=== PATIENT | female | born 1940 | race Caucasian/White ===

== ENCOUNTER 2019-06-11 23:09 | Emergency (ER) | payer MEDICARE, OTHER ==
[~2019-06-11] VITALS: Ht 162.6 cm; Wt 68.0 kg
--- NOTE | 2019-06-11 23:33 | NUR ---
PT C/O R ANKLE PAIN AND SWELLING. TWISTED ANKLE ON SAT WHILE IN [facility]. WAS SEEN BY [facility] ON SUNDAY AND NO FRACTURE NOTED. PT CONTINUES WITH SWELLING AND SEVERE PAIN WITH AMBULATION. REDNESS NOTED FROM ANKLE TO MID RUBIN. PT DENIES CP OR SOB. XRAY AT BEDSIDE. FAMILY AT BEDSIDE AND AWARE OF POC.
[2019-06-11 23:49] LABS: BASOPHILS # (AUTO) 0.07 x10^3/uL (0-0.1); BASOPHILS % (AUTO) 1 % (0-1); EOSINOPHILS # (AUTO) 0.15 x10^3/uL (0-0.4); EOSINOPHILS % (AUTO) 3 % (1-7); LYMPHOCYTES # (AUTO) 1.38 x10^3/uL (1-3.4); LYMPHOCYTES % (AUTO) 23 % (22-44); MD NO; MEAN CORPUSCULAR HEMOGLOBIN 29.8 pg (27.0-34.8); MEAN CORPUSCULAR HGB CONC 32.7 g/dL (32.4-35.8); MEAN CORPUSCULAR VOLUME 91.3 fL (80-100); MEAN PLATELET VOLUME 7.2 fL (7.4-10.4); MONOCYTES # (AUTO) 0.63 x10^3/uL (0.2-0.8); MONOCYTES % (AUTO) 10 % (2-9); NEUTROPHILS # (AUTO) 3.84 x10^3/uL (1.8-6.8); NEUTROPHILS % (AUTO) 63 % (42-75); PLATELET COUNT 327 x10^3/uL (130-400); RED BLOOD COUNT 4.69 x10^6/uL (3.82-5.3); RED CELL DISTRIBUTION WIDTH 15.5 % (9.6-15.2)
[2019-06-11 23:58] LABS: ANION GAP 5 mmol/L (5-15); CALCIUM 9.2 mg/dL (8.5-10.1); CHLORIDE 111 mmol/L (98-107); CREATININE 1.04 mg/dL (0.55-1.02)
--- NOTE | 2019-06-12 00:13 | NUR ---
PT RESTING WITH NO NEEDS EXPRESSED. AWAITING US--CALL PLACED TO [facility] WHO STATES HE WILL COME OVER RIGHT NOW. NO FURTHER NEEDS EXPRESSED. CALL LIGHT IN REACH. FAMILY REMAINS AT BEDSIDE.
--- NOTE | 2019-06-12 00:39 | NUR ---
ASSISTED PT TO BR VIA W/C. WARM BLANKET GIVEN. NO FURTHER NEEDS EXPRESSED. CALL LIGHT IN REACH. VSS.
[2019-06-12 01:58] VITALS: BP 124/52
== END 2019-06-12 02:00 | disposition home or self-care (01) ==
LOC: ED 23:30
DX: S93.401A Sprain of unspecified ligament of right ankle, initial encounter (principal); L03.115 Cellulitis of right lower limb; M79.661 Pain in right lower leg; Z86.73 Personal history of transient ischemic attack (TIA), and cerebral infarction without residual deficits; I10 Essential (primary) hypertension; E11.9 Type 2 diabetes mellitus without complications; X50.1XXA Overexertion from prolonged static or awkward postures, initial encounter; Y93.89 Activity, other specified; Y92.009 Unspecified place in unspecified non-institutional (private) residence as the place of occurrence of the external cause; Y99.8 Other external cause status
CPT/HCPCS: 36415; 80048; 85025; 99284

== ENCOUNTER 2019-08-01 14:49 | Observation (INO) | payer MEDICARE, OTHER ==
[~2019-08-01] VITALS: Ht 160 cm; Wt 70.8 kg
[2019-08-01] MEDS ORDERED: AMLO10TA8 PO (15:14)
[2019-08-01] MEDS ORDERED: LOSA1TAB22 PO (15:14)
[2019-08-01] MEDS ORDERED: METF500T17 PO (15:14)
[2019-08-01] MEDS ORDERED: LATA2.5D2 EACHEYE (15:14)
--- NOTE | 2019-08-01 15:19 | NUR ---
PT TO ED WITH FAMILY AFTER FEELING DIZZY "LIKE I DIDN'T HAVE GOOD BALANCE" WITH ASSOCIATED NAUSEA. PT REPORTS IT STARTED WHILE IN A HOT SHOWER. PT'S FAMILY STATES IT CONTINUED FOR APPROX 1.5 HOURS. PT STATES ALL S/S HAVE RESOLVED AT THIS TIME. PT CONNECTED TO ALL MONITORS. VSS ON RA. NO NEEDS EXPRESSED. AT THIS TIME. AWAITING EDMD ASSESSMENT.
--- NOTE | 2019-08-01 16:13 | NUR ---
RECEIVED REPORT FROM JIAN GRANADOS. ASSUMING CARE AT THIS TIME.
[2019-08-01] MEDS ORDERED: SODIUM CHLORIDE FLUSH 10ML SYR IVF ONE (16:30)
[2019-08-01] MEDS ORDERED: SODIUM CHLORIDE 0.9% 1,000ML IVBOLUS ONE (16:30)
--- NOTE | 2019-08-01 16:49 | NUR ---
IV START. LABS AND UA COLLECTED AND SENT TO LAB. IVF RUNNING.
[2019-08-01 16:59] LABS: BASOPHILS # (AUTO) 0.02 x10^3/uL (0-0.1); BASOPHILS % (AUTO) 0 % (0-1); EOSINOPHILS # (AUTO) 0.11 x10^3/uL (0-0.4); EOSINOPHILS % (AUTO) 1 % (1-7); LYMPHOCYTES # (AUTO) 0.73 x10^3/uL (1-3.4); LYMPHOCYTES % (AUTO) 8 % (22-44); MD NO; MEAN CORPUSCULAR HEMOGLOBIN 29.6 pg (27.0-34.8); MEAN CORPUSCULAR HGB CONC 32.6 g/dL (32.4-35.8); MEAN CORPUSCULAR VOLUME 90.7 fL (80-100); MEAN PLATELET VOLUME 7.1 fL (7.4-10.4); MONOCYTES % (AUTO) 2 % (2-9); NEUTROPHILS # (AUTO) 7.79 x10^3/uL (1.8-6.8); NEUTROPHILS % (AUTO) 88 % (42-75); PLATELET COUNT 310 x10^3/uL (130-400); RED BLOOD COUNT 4.85 x10^6/uL (3.82-5.3); RED CELL DISTRIBUTION WIDTH 14.6 % (9.6-15.2)
[2019-08-01 17:05] LABS: ALANINE AMINOTRANSFERASE 37 U/L (12-78); ALBUMIN 3.9 g/dL (3.4-5.0); ANION GAP 6 mmol/L (5-15); CALCIUM 9.5 mg/dL (8.5-10.1); CHLORIDE 106 mmol/L (98-107)
[2019-08-01 17:08] LABS: MICROSCOPIC AUTO
[2019-08-01 17:09] LABS: ALKALINE PHOSPHATASE 73 U/L (45-117); BILIRUBIN,TOTAL 0.4 mg/dL (0.2-1.0); TOTAL PROTEIN 8.3 g/dL (6.4-8.2); TROPONIN I < 0.015 ng/mL (0.000-0.045)
[2019-08-01 17:11] LABS: CULTURE INDICATED? YES
--- NOTE | 2019-08-01 17:21 | NUR ---
PT RESTING COMFORTABLY ON GURNEY. MIKHAIL. FAMILY AT BEDSIDE.
--- NOTE | 2019-08-01 17:32 | NUR ---
ALL RESULTS ARE BACK AT THIS TIME. CHART UP FOR RECHECK.
--- NOTE | 2019-08-01 18:17 | NUR ---
BREAK RN: AMBULATED PT AROUND ROOM. PT WAS NOT STABLE ON HER FEET. PT ASSISTED BACK TO BED. DR ROMERO AWARE. FAMILY AT BEDSIDE. PT WENT TO CT.
[2019-08-01] MEDS ORDERED: MECLIZINE CHEWABLE 25 MG TAB PO ONE (18:30)
[2019-08-01] MEDS ORDERED: MECLIZINE CHEWABLE 25 MG TAB ONE (18:36)
--- NOTE | 2019-08-01 18:39 | NUR ---
PT BACK FROM CT. MEDS ADMIN PER OCT. PT RESTING ON RSANDIA. FAMILY AT BEDSIDE.
--- NOTE | 2019-08-01 18:40 | NUR ---
ALL RESULTS ARE BACK AT THIS TIME. CHART UP FOR RECHECK.
--- NOTE | 2019-08-01 19:10 | NUR ---
MD AT BEDSIDE TO UPDATE PT AND FAMILY ON POC.
--- NOTE | 2019-08-01 19:48 | NUR ---
PT RESTING COMFORTABLY ON GURNEY. NADN. FAMILY AT BEDSIDE. AWAITING ADMIT BED UPSTAIRS.
[2019-08-01] MEDS ORDERED: SODIUM CHLORIDE 0.9% 1,000 ML IV ONE (19:49)
[2019-08-01] MEDS ORDERED: SODIUM CHLORIDE FLUSH 10ML SYR IVF PRN (20:00)
--- NOTE | 2019-08-01 20:22 | NUR ---
REPORT GIVEN TO JENS GRANADOS.
[2019-08-01] MEDS ORDERED: ACETAMINOPHEN 325 MG TABLET PO PRN (21:00)
[2019-08-01] MEDS ORDERED: MECLIZINE 25 MG TABLET PO PRN (21:00)
[2019-08-01] MEDS ORDERED: ONDANSETRON ODT 4 MG PO PRN (21:00)
[2019-08-01] MEDS ORDERED: POLYETHYLENE GLYCOL 17 GM PACKET PO PRN (21:00)
[2019-08-01] MEDS ORDERED: DIAZEPAM 2 MG TABLET PO PRN (21:00)
[2019-08-01] MEDS ORDERED: BISACODYL 10 MG SUPP PR PRN (21:00)
[2019-08-01 21:06] VITALS: BP 121/62
[2019-08-01] MEDS: metFORMIN 500 MG TABLET PO SCH (22:25)
[2019-08-01] MEDS: SODIUM CHLORIDE FLUSH 10ML SYR IVF SCH (22:26)
[2019-08-01] MEDS: LATANOPROST OPHTH 0.005%, 2.5ML EACHEYE SCH (23:01)
[2019-08-02] VITALS (8 sets, daily range): BP systolic 111–143; BP diastolic 64–72
[2019-08-02] MEDS: metFORMIN 500 MG TABLET PO SCH ×2 (08:28→16:50)
[2019-08-02] MEDS: AMLODIPINE 10 MG TAB PO SCH (08:28)
[2019-08-02] MEDS: SODIUM CHLORIDE FLUSH 10ML SYR IVF SCH ×2 (08:29→20:44)
[2019-08-02] MEDS: SENNA/DOCUSATE TABLET PO SCH (08:29)
[2019-08-02] MEDS ORDERED: TEMPLATE NON-FORMULARY MED. (Losartan/Hydrochlorothiazide** (Losartan-Hctz 100-25 Mg Tab PO SCH (09:00)
[2019-08-02] MEDS ORDERED: HYDROCHLOROTHIAZIDE 25 MG TABLET PO SCH (09:00)
[2019-08-02] MEDS ORDERED: LOSARTAN 50MG TABLET PO SCH (09:00)
[2019-08-02] MEDS: LATANOPROST OPHTH 0.005%, 2.5ML EACHEYE SCH (20:44)
[2019-08-03 01:13] VITALS: BP 129/69
[2019-08-03] MEDS ORDERED: ASPIRIN 81 MG TABLET EC PO SCH (06:00)
[2019-08-03 07:26] VITALS: BP 139/69
[2019-08-03] MEDS: AMLODIPINE 10 MG TAB PO SCH (08:37)
[2019-08-03] MEDS: SODIUM CHLORIDE FLUSH 10ML SYR IVF SCH (08:38)
[2019-08-03] MEDS: metFORMIN 500 MG TABLET PO SCH (08:38)
[2019-08-03] MEDS: SENNA/DOCUSATE TABLET PO SCH (08:38)
[2019-08-03] MEDS ORDERED: LOSARTAN 25MG TABLET PO SCH (09:00)
[2019-08-03] MEDS ORDERED: LOSA50TA14 PO (10:15)
[2019-08-03] MEDS ORDERED: ASPI81TA45 PO (10:15)
== END 2019-08-03 14:27 | disposition home or self-care (01) ==
LOC: ED 15:31 → INTOOBSV 20:51 → EDIP 20:51 → 4EST 21:01
PROVIDERS: ADMIT Family Medicine; ATTEND Internal Medicine Infectious Disease
DX: R42 Dizziness and giddiness (principal); E11.9 Type 2 diabetes mellitus without complications; I10 Essential (primary) hypertension; G45.9 Transient cerebral ischemic attack, unspecified; Z79.82 Long term (current) use of aspirin; Z79.84 Long term (current) use of oral hypoglycemic drugs
CPT/HCPCS: 36415; 70450; 71045; 80053; 81001; 82962; 84484; 85025; 87086; 93005; 99284; G0378; J7030